=== PATIENT | female | born 1945 | race Caucasian/White ===

== ENCOUNTER 2023-12-23 15:30 | Emergency (ER) | payer OTHER ==
[2023-12-23 15:54] VITALS: BP 127/68; PULSE 76; RESP 18; TEMP 98.3; BMI 24.7
[2023-12-23] MEDS ORDERED: ACETAMINOPHEN 500 MG TABLET (FP) ONE (16:17)
[2023-12-23] MEDS: ACETAMINOPHEN 500 MG TABLET (FP) PO ONE (16:19)
[2023-12-23] MEDS ORDERED: IBUPROFEN 600 MG TABLET (FP) PO ONE (19:22)
[2023-12-23] MEDS: IBUPROFEN 600 MG TABLET (FP) PO ONE (19:24)
== END 2023-12-23 20:04 | disposition home or self-care (01) ==
LOC: JER 15:30
DX: M25.561 Pain in right knee (principal); M71.21 Synovial cyst of popliteal space [Baker], right knee; W18.39XA Other fall on same level, initial encounter
CPT/HCPCS: 73564-TC-RT-FY; 93971-TC; 99284-25